=== PATIENT | male | born 1945 | race Caucasian/White ===

== ENCOUNTER → 2020-11-23 | Day surgery (SDC) | payer MEDICARE, OTHER ==
[~2020-11-23] MED LIST: AMARYL1 MG PO; ASPIRIN CHEWABL81 MG PO; CLARITIN10 M2 PO; COZAAR100 MG PO; LEVOTHYROXINE50 MC1 PO; LIPITOR TAB 1010 MG PO; METFORMIN ER G500 MG PO; VITAMIN B12-FO1 EACH PO
== END | disposition home or self-care (01) ==
LOC: OR 07:05
DX: Z12.11 Encounter for screening for malignant neoplasm of colon (principal); D12.3 Benign neoplasm of transverse colon; Z86.010 Personal history of colon polyps; E11.9 Type 2 diabetes mellitus without complications; K64.1 Second degree hemorrhoids; K57.30 Diverticulosis of large intestine without perforation or abscess without bleeding; I10 Essential (primary) hypertension; Z20.822 Contact with and (suspected) exposure to COVID-19; Z79.84 Long term (current) use of oral hypoglycemic drugs
CPT/HCPCS: 82962; J2704; J7040

== ENCOUNTER → 2021-07-31 | Outpatient (CLI) | payer MEDICARE | LOC: KOH-I 10:13 | DX: R31.9 Hematuria, unspecified (principal); N20.0 Calculus of kidney; N28.9 Disorder of kidney and ureter, unspecified | CPT/HCPCS: 74176 ==

== ENCOUNTER → 2021-08-14 | Outpatient (CLI) | payer MEDICARE, OTHER | LOC: KOH-I 10:39 | DX: N28.1 Cyst of kidney, acquired (principal); N28.9 Disorder of kidney and ureter, unspecified; N20.0 Calculus of kidney | CPT/HCPCS: 76775 ==

== ENCOUNTER → 2021-09-11 | Outpatient (CLI) | payer MEDICARE, OTHER | LOC: EXRD 10:39 | DX: N20.0 Calculus of kidney (principal) | CPT/HCPCS: 74018 ==